=== PATIENT | female | born 1950 | race Caucasian/White ===

== ENCOUNTER 2017-05-24 17:25 | Emergency (ER) | payer MEDICARE, BC ==
[~2017-05-24] VITALS: Ht 162.6 cm; Wt 43.4 kg
[2017-05-24 17:30] VITALS: BP 142/83; PULSE 85; RESP 16; TEMP 97.4; O2SAT 96
[2017-05-24] MEDS ORDERED: DIAZ5 PO (17:41)
[2017-05-24] MEDS ORDERED: SODIUM CHLOR 0.9% 1000 ML INJ 1,000 ML IV ONE (17:46)
--- NOTE | 2017-05-24 17:54 | PD ---
HPI Chief Complaint: Syncope/Near-Syncope Time Seen by Provider: 17:37 Travel History International Travel<30 days: No Contact w/Intl Traveler<30days: No Traveled to known affect area: No History of Present Illness HPI The patient is a 67-year-old female who presents to the emergency department after near syncopal episode while at the dentist office. The patient was having dental work performed earlier today, took 20 mg of Valium prior to the procedure and then had nitric oxide. The patient states after the procedure she went to stand up and had a near syncopal episode. She felt like she was going to pass out, however, never lost consciousness and did not fall to the ground. The patient called her primary physician, Dr. Youngblood, who referred her to the emergency department for an EKG. She denies any history of arrhythmia or valvular disorders. She denied any chest pain, shortness of breath, palpitations, nausea, vomiting, or diaphoresis with the episode. Her symptoms are currently resolved and she is required to how long she will be in the hospital as she is hungry. She does have a history of anorexia, but denies any history of syncope or near syncope. Symptoms are mild and have currently resolved. Possibly exacerbated by taking volume and receiving nitric oxide. PFSH Past Medical History Narrative Medical Anorexia ?: Not Past Surgical History Narrative Surgical Dental surgery Social History Alcohol Use: No Tobacco Use: Yes Substance Use: No Allergies-Medications (Allergen,Severity, Reaction): Coded Allergies: Penicillins (Verified Allergy, Severe, RASH AND DIFFICULTY BREATHING, ) Reported Meds & Prescriptions Reported Meds & Active Scripts Active Reported Valium (Diazepam) 5 Mg Tab 5 Mg PO BID Review of Systems Except as stated in HPI: all other systems reviewed are Neg General / Constitutional: No: Fever HENT: Positive: Lightheadedness Cardiovascular: Positive: Other (Near-syncope), No: Chest Pain or Discomfort, Palpitations, Irregular Rhythm, Tachycardia, Diaphoresis, Syncope, Dyspnea on exertion Gastrointestinal: No: Nausea, Vomiting, Abdominal Pain Neurologic: No: Weakness, Syncope, Focal Abnormalities Physical Exam Narrative GENERAL: Awake, alert, pleasant 67-year-old female who appears her stated age and is in no acute respiratory distress. SKIN: Focused skin assessment warm/dry. HEAD: Atraumatic. Normocephalic. EYES: Pupils equal and round. No scleral icterus. No injection or drainage. NECK: Trachea midline. No JVD. CARDIOVASCULAR: Regular rate and rhythm. No murmur appreciated. RESPIRATORY: No accessory muscle use. Clear to auscultation. Breath sounds equal bilaterally. GASTROINTESTINAL: Abdomen soft, non-tender, nondistended. MUSCULOSKELETAL: No obvious deformities. No clubbing. No cyanosis. No edema. NEUROLOGICAL: Awake and alert. No obvious cranial nerve deficits. Motor grossly within normal limits. Normal speech. Nonfocal. PSYCHIATRIC: Appropriate mood and affect; insight and judgment normal. Data Data Last Documented VS Vital Signs Date Time Temp Pulse Resp B/P (MAP) Pulse Ox O2 Delivery O2 Flow Rate FiO2 05/24/17 18:01 71 20 119/56 (77) 65 20 128/65 (86) 20 124/65 (84) 05/24/17 17:55 96 05/24/17 17:30 97.4 Orders Orders Electrocardiogram (05/24/17 17:46) Complete Blood Count With Diff (05/24/17 17:46) Comprehensive Metabolic Panel (05/24/17 17:46) Magnesium (Mg) (05/24/17 17:46) Ecg Monitoring (05/24/17 17:46) Iv Access Insert/Monitor (05/24/17 17:46) Oximetry (05/24/17 17:46) Sodium Chloride 0.9% Flush (Ns Flush) (05/24/17 18:00) Sodium Chlor 0.9% 1000 Ml Inj (Ns 1000 M (05/24/17 17:46) Orthostatic Vital Signs (05/24/17 17:46) Labs Laboratory Tests Test 05/24/17 17:55 White Blood Count 9.7 TH/MM3 Red Blood Count 4.27 MIL/MM3 Hemoglobin 13.3 GM/DL Hematocrit 39.4 % Mean Corpuscular Volume 92.3 FL Mean Corpuscular Hemoglobin 31.2 PG Mean Corpuscular Hemoglobin Concent 33.8 % Red Cell Distribution Width 12.4 % Platelet Count 344 TH/MM3 Mean Platelet Volume 8.4 FL Neutrophils (%) (Auto) 52.3 % Lymphocytes (%) (Auto) 40.9 % Monocytes (%) (Auto) 5.7 % Eosinophils (%) (Auto) 0.7 % Basophils (%) (Auto) 0.4 % Neutrophils # (Auto) 5.0 TH/MM3 Lymphocytes # (Auto) 4.0 TH/MM3 Monocytes # (Auto) 0.6 TH/MM3 Eosinophils # (Auto) 0.1 TH/MM3 Basophils # (Auto) 0.0 TH/MM3 CBC Comment DIFF FINAL Differential Comment Blood Urea Nitrogen 22 MG/DL Creatinine 0.93 MG/DL Random Glucose 105 MG/DL Total Protein 7.1 GM/DL Albumin 3.5 GM/DL Calcium Level 8.7 MG/DL Magnesium Level 2.1 MG/DL Alkaline Phosphatase 92 U/L Aspartate Amino Transf (AST/SGOT) 19 U/L Alanine Aminotransferase (ALT/SGPT) 24 U/L Total Bilirubin 0.3 MG/DL Sodium Level 141 MEQ/L Potassium Level 3.5 MEQ/L Chloride Level 107 MEQ/L Carbon Dioxide Level 28.6 MEQ/L Anion Gap 5 MEQ/L Estimat Glomerular Filtration Rate 60 ML/MIN MDM Medical Decision Making Medical Screen Exam Complete: Yes Emergency Medical Condition: Yes Medical Record Reviewed: Yes Interpretation(s) EKG reveals normal sinus rhythm with a rate of 64. No ischemic changes or ectopy noted. No evidence of WPW or Brugada syndrome. Laboratory Tests Test 05/24/17 17:55 White Blood Count 9.7 TH/MM3 Red Blood Count 4.27 MIL/MM3 Hemoglobin 13.3 GM/DL Hematocrit 39.4 % Mean Corpuscular Volume 92.3 FL Mean Corpuscular Hemoglobin 31.2 PG Mean Corpuscular Hemoglobin Concent 33.8 % Red Cell Distribution Width 12.4 % Platelet Count 344 TH/MM3 Mean Platelet Volume 8.4 FL Neutrophils (%) (Auto) 52.3 % Lymphocytes (%) (Auto) 40.9 % Monocytes (%) (Auto) 5.7 % Eosinophils (%) (Auto) 0.7 % Basophils (%) (Auto) 0.4 % Neutrophils # (Auto) 5.0 TH/MM3 Lymphocytes # (Auto) 4.0 TH/MM3 Monocytes # (Auto) 0.6 TH/MM3 Eosinophils # (Auto) 0.1 TH/MM3 Basophils # (Auto) 0.0 TH/MM3 CBC Comment DIFF FINAL Differential Comment Blood Urea Nitrogen 22 MG/DL Creatinine 0.93 MG/DL Random Glucose 105 MG/DL Total Protein 7.1 GM/DL Albumin 3.5 GM/DL Calcium Level 8.7 MG/DL Magnesium Level 2.1 MG/DL Alkaline Phosphatase 92 U/L Aspartate Amino Transf (AST/SGOT) 19 U/L Alanine Aminotransferase (ALT/SGPT) 24 U/L Total Bilirubin 0.3 MG/DL Sodium Level 141 MEQ/L Potassium Level 3.5 MEQ/L Chloride Level 107 MEQ/L Carbon Dioxide Level 28.6 MEQ/L Anion Gap 5 MEQ/L Estimat Glomerular Filtration Rate 60 ML/MIN Differential Diagnosis Differential diagnosis includes medication side effect, medication interaction, arrhythmia, vasovagal episode, cardiogenic near syncope, vasogenic near syncope , electrolyte abnormality, aortic stenosis. Narrative Course IV was established, labs are drawn and sent, and the patient was placed on cardiac telemetry monitoring and continuous pulse oximetry monitoring. EKG was ordered and interpreted. Orthostatic vital signs were obtained. The patient received 1 L of IV fluids. EKG was unremarkable, no evidence of Brugada syndrome or WPW. Electrolytes are unremarkable. BUN is slightly elevated, may be small amount of dehydration. Orthostatic vital signs are within normal limits. The patient is asymptomatic. She will be discharged home with a copy of her EKG and lab results at discharge. She is advised to follow-up with her primary physician. Return if symptoms worsen or progress. Diagnosis Primary Impression: Near syncope Patient Instructions: General Instructions Additional Instructions: Please provide the patient a copy of her lab results and EKG results at discharge. Return if symptoms worsen or progress. Follow-up with her primary physician. Med/Other Pt SpecificInfo: No Change to Meds Disposition: 01 DISCHARGE HOME Condition: Stable Brian Carreon MD May 24, 2017 17:54
[2017-05-24 17:55] VITALS: O2SAT 96
[2017-05-24 17:59] LABS: BASOPHIL % 0.4 % (0.0-2.0); EOSINOPHIL # 0.1 TH/MM3 (0-0.4); EOSINOPHIL % 0.7 % (0.0-4.0); HEMATOCRIT 39.4 % (35.0-46.0); HEMOGLOBIN 13.3 GM/DL (11.6-15.3); LYMPH % 40.9 % (9.0-44.0); MEAN CELL VOLUME 92.3 FL (80.0-100.0); MEAN CORPUSCULAR HEMOGLOBIN 31.2 PG (27.0-34.0); MEAN CORPUSCULAR HGB CONC 33.8 % (32.0-36.0); MEAN PLATELET VOLUME 8.4 FL (7.0-11.0); MONO % 5.7 % (0.0-8.0); MONOCYTE # 0.6 TH/MM3 (0-0.9); NEUT % 52.3 % (16.0-70.0); PLATELET COUNT 344 TH/MM3 (150-450); RED BLOOD COUNT 4.27 MIL/MM3 (4.00-5.30); RED CELL DISTRIBUTION WIDTH 12.4 % (11.6-17.2); WHITE BLOOD COUNT 9.7 TH/MM3 (4.0-11.0)
[2017-05-24] MEDS ORDERED: SODIUM CHLORIDE 0.9% FLUSH 10 ML FLUSH IVF PRN (18:00)
[2017-05-24 18:01] VITALS: BP_SYST 119; BP_SYST 124; BP_SYST 128; BP_DIAS 56; BP_DIAS 65; RESP 20
[2017-05-24 18:08] LABS: CHLORIDE 107 MEQ/L (98-107); SODIUM (NA) 141 MEQ/L (136-145)
[2017-05-24 18:11] LABS: CALCIUM 8.7 MG/DL (8.5-10.1)
[2017-05-24 18:12] LABS: ALBUMIN 3.5 GM/DL (3.4-5.0); BICARBONATE 28.6 MEQ/L (21.0-32.0); BLOOD UREA NITROGEN 22 MG/DL (7-18); GLUCOSE,RANDOM 105 MG/DL (74-106); MAGNESIUM 2.1 MG/DL (1.5-2.5)
[2017-05-24 18:15] LABS: ALT (GPT) 24 U/L (10-53); AST (GOT) 19 U/L (15-37); CREATININE 0.93 MG/DL (0.50-1.00); GLOMERULAR FILTRATION RATE 60 ML/MIN (>89)
[2017-05-24 18:16] LABS: TOTAL BILIRUBIN ADULT 0.3 MG/DL (0.2-1.0)
[2017-05-24 18:17] LABS: TOTAL PROTEIN 7.1 GM/DL (6.4-8.2)
[2017-05-24 18:18] LABS: ALKALINE PHOSPHATASE 92 U/L (45-117)
--- NOTE | 2017-05-25 14:01 | EKG ---
Date Performed: 05/24/2017 Time Performed: 18:10:41 PTAGE: 67 years EKG: Sinus rhythm NORMAL ECG NO PREVIOUS TRACING DOCTOR: Satya Pearson Interpretating Date/Time 05/25/2017 14:00:26
== END 2017-05-24 18:45 | disposition home or self-care (01) ==
LOC: PHED 17:25
DX: R55 Syncope and collapse (principal); Z72.0 Tobacco use
CPT/HCPCS: 80053; 83735; 85025; 93005; 96360; 99284; J7030